=== PATIENT | male | born 1960 | race Asian ===

== ENCOUNTER 2019-12-16 11:36 | Inpatient (IN) | payer MEDICARE, OTHER ==
[~2019-12-16] VITALS: Ht 162.6 cm; Wt 63.7 kg
[2019-12-16] MEDS ORDERED: ISON100I IM (11:47)
[2019-12-16] MEDS ORDERED: FURO80 PO (11:47)
[2019-12-16] MEDS ORDERED: CEFU250T87 PO (11:47)
[2019-12-16] MEDS ORDERED: PYRA500 PO (11:47)
[2019-12-16] MEDS ORDERED: TRAM50TA4 PO (11:47)
[2019-12-16] MEDS ORDERED: VALA500T42 PO (11:47)
[2019-12-16] MEDS ORDERED: PRED20 PO (11:47)
[2019-12-16] MEDS ORDERED: TAMS-13 PO (11:47)
[2019-12-16] MEDS ORDERED: POTA8TAB71 PO (11:47)
[2019-12-16] MEDS ORDERED: SITA25 PO (11:47)
[2019-12-16] MEDS ORDERED: ATOR20TA86 PO (11:47)
[2019-12-16] MEDS ORDERED: RIFAB150 PO (11:47)
[2019-12-16] MEDS ORDERED: SODIUM CHLORIDE 0.9% 100 ML ONE (11:54)
[2019-12-16] MEDS ORDERED: IOVERSOL 350 MG/ML 100 ML VIAL ONE (11:54)
[2019-12-16 12:03] LABS: BASOPHILS % (AUTO) 0.3 % (0.0-2.0); EOSINOPHILS % (AUTO) 0 % (1.0-6.0); HEMATOCRIT 35.5 % (41-53); LYMPHOCYTES # (AUTO) 0.3 K/uL (1.0-4.8); LYMPHOCYTES % (AUTO) 9.5 % (22.0-44.0); MEAN CORPUSCULAR HEMOGLOBIN 33.9 pg (26.0-34.0); MEAN CORPUSCULAR HGB CONC 33.7 G/dL (31.0-37.0); MEAN CORPUSCULAR VOLUME 101 fL (80-100); MONOCYTES # (AUTO) 0.2 K/uL (0.1-1.0); MONOCYTES % (AUTO) 6.6 % (2.0-9.0); NEUTROPHILS % (AUTO) 83.6 % (40.0-70.0); PLATELET COUNT (AUTO) 143 K/uL (150-450); RED BLOOD CELL COUNT(AUTO) 3.53 MIL/uL (4.50-5.90); RED CELL DISTRIBUTION WIDTH 14.4 % (11.5-14.5)
[2019-12-16] MEDS ORDERED: SODIUM CHLORIDE 0.9% 1,000 ML IV ONE (12:15)
[2019-12-16 12:17] LABS: INR 0.9 (0.9-1.1); PROTHROMBIN TIME 9.6 SEC (9.4-11.6)
[2019-12-16 12:22] LABS: ALBUMIN 3.2 g/dL (3.4-5.0); BILIRUBIN,TOTAL 0.6 mg/dL (0.1-1.0); CALCIUM, TOTAL 10.2 mg/dL (8.8-10.5); CREATININE 11.82 mg/dL (0.60-1.30); POTASSIUM 3.1 mmol/L (3.5-5.1)
[2019-12-16] MEDS ORDERED: INSULIN REGULAR, HUMAN 100 UNITS/ML IVP ONE ×2 (12:30→14:45)
[2019-12-16] MEDS ORDERED: SODIUM CHLORIDE 0.9% 250 ML IV ONE (12:40)
[2019-12-16] MEDS: POTASSIUM CHL 10 MEQ/WATER 50 ML IV SCH ×3 (12:46→14:30)
[2019-12-16 12:53] LABS: SOURCE, BLOOD GAS ARTERIAL; TEMPERATURE, FAHRENHEIT, BG 98.6 FAHREN (96.0-98.6)
[2019-12-16 13:02] LABS: ABG A-A DIFF O2 42.2 mmHg (10-20.0); ABG CARBOXYHEMOGLOBIN 0.8 % (0.0-1.5); ABG HCO3 22.5 mmol/L (22.0-26.0); ABG METHEMOGLOBIN 0.4 % (0.0-1.5); ABG OXYGEN CONTENT 13.7 mL/dL (15.0-23.0); ABG OXYHEMOGLOBIN 83.9 % (94.0-100.0); ABG PCO2 47 mmHg (35-45); ABG TOTAL HEMOGLOBIN 11.6 G/dL (12.0-18.0); PO2, ARTERIAL BG 51.8 mmHg (84.0-92.0)
[2019-12-16 13:03] LABS: ABG OXYGEN SATURATION 84.9 % (95.0-98.0); SITE, BLOOD GAS RT RADIAL
[2019-12-16] MEDS ORDERED: LORazepam 2 MG/ML VIAL ONE (14:43)
[2019-12-16] MEDS ORDERED: LORazepam 2 MG/ML VIAL IVP ONE ×3 (14:45→17:30)
[2019-12-16] MEDS ORDERED: POTASSIUM CHL 20 MEQ/0.9% NS 1,000 ML IV ONE (14:45)
[2019-12-16 14:49] LABS: GLUCOSE,POINT OF CARE 521 MG/DL (70-110)
[2019-12-16 15:07] LABS: CALCIUM, TOTAL 9.3 mg/dL (8.8-10.5); CREATININE 11.3 mg/dL (0.60-1.30); POTASSIUM 3.1 mmol/L (3.5-5.1)
[2019-12-16] MEDS ORDERED: SODIUM CHLORIDE 0.9% 500 ML IV ONE (15:12)
[2019-12-16] MEDS ORDERED: LevETIRAcetam 1,000 MG in DEXTROSE 5%-WATER 100 ML IV ONE ×2 (15:30→16:15)
[2019-12-16 16:04] LABS: LACTIC ACID 3.4 mmol/L (0.4-2.0)
[2019-12-16] MEDS ORDERED: PANTOPRAZOLE SODIUM 40 MG/VIAL IVP ONE (16:15)
[2019-12-16 16:44] LABS: GLUCOSE,POINT OF CARE 436 MG/DL (70-110)
[2019-12-16] MEDS ORDERED: LABETALOL HCL 5 MG/ML 20 ML VIAL IVP ONE ×2 (16:45→17:30)
[2019-12-16 17:57] LABS: GLUCOSE,POINT OF CARE 351 MG/DL (70-110)
[2019-12-16 18:49] LABS: GLUCOSE, CSF 214 mg/dL (50-80); TOTAL PROTEIN, CSF 56 mg/dL (15-45)
[2019-12-16 18:50] LABS: MAGNESIUM 2.2 mg/dL (1.80-2.40); PHOSPHORUS 5.1 mg/dL (2.5-4.9)
[2019-12-16] MEDS ORDERED: 0.9% SODIUM CHLORIDE 10 ML SYRINGE IVP PRN (19:00)
[2019-12-16] MEDS ORDERED: ONDANSETRON HCL 4 MG/2 ML VIAL IVP PRN (19:00)
[2019-12-16 19:28] LABS: APPEARANCE2,CSF CLEAR (CLEAR); COLOR2,CSF COLORLESS (COLORLESS); CSF 2ND TUBE NUMBER TUBE NO.4; RED BLOOD CELL2,CSF 0.5 CMM (0-0)
[2019-12-16 19:29] LABS: LYMPHOCYTES2,CSF 80 %; MONOCYTES2,CSF 10 %; NEUTROPHILS2,CSF 10 %
[2019-12-16 19:34] LABS: OTHER CELLS,CSF 2ND 0
[2019-12-16 19:36] LABS: CALCIUM, TOTAL 9.3 mg/dL (8.8-10.5); CREATININE 11.48 mg/dL (0.60-1.30)
[2019-12-16 19:39] LABS: POTASSIUM 2.6 mmol/L (3.5-5.1)
[2019-12-16] MEDS ORDERED: POTASSIUM CHL 10 MEQ/WATER 50 ML IV ONE ×2 (20:00→21:00)
[2019-12-16] MEDS ORDERED: MIDAZOLAM HCL 200 MG in DEXTROSE 5%-WATER 160 ML IV PRN (21:12)
[2019-12-16] MEDS ORDERED: ETOMIDATE 2 MG/ML 10 ML VIAL IVP ONE (21:15)
[2019-12-16] MEDS ORDERED: PHENYTOIN SODIUM 1,000 MG in SODIUM CHLORIDE 0.9% 150 ML IV ONE (21:15)
[2019-12-16] MEDS ORDERED: VECURONIUM BROMIDE 10 MG/VIAL ONE (21:59)
[2019-12-16] MEDS ORDERED: VECURONIUM BROMIDE 10 MG/VIAL IVP ONE (22:15)
[2019-12-16] MEDS: MIDAZOLAM HCL 100 MG in DEXTROSE 5%-WATER 180 ML IV PRN (22:15)
[2019-12-16 23:19] LABS: APPEARANCE,URINE CLEAR (CLEAR); BILIRUBIN,URINE NEGATIVE (NEGATIVE); GLUCOSE, URINE (UA) >=1000 mg/dL (NEGATIVE); KETONES,URINE NEGATIVE (NEGATIVE); LEUKOCYTE ESTERASE ,URINE NEGATIVE (NEGATIVE); NITRATE,URINE NEGATIVE (NEGATIVE); OCCULT BLOOD,URINE MODERATE (NEGATIVE); PH,URINE 6.5 (5.0-8.0); PROTEIN,URINE SEE CONFIRM (NEGATIVE); UROBILINOGEN,URINE 0.2 mg/dL (<=1.0)
[2019-12-16 23:25] LABS: AMPHET/METH SCREEN,URINE NEGATIVE (NEGATIVE); BARBITURATE SCREEN, URINE NEGATIVE (NEGATIVE); BENZODIAZEPINES SCREEN,URINE NEGATIVE (NEGATIVE); CANNABINOID SCREEN,URINE NEGATIVE (NEGATIVE); COCAINE SCREEN,URINE NEGATIVE (NEGATIVE); METHADONE SCREEN, URINE NEGATIVE (NEGATIVE); OPIATE SCREEN,URINE NEGATIVE (NEGATIVE)
[2019-12-16 23:31] LABS: BACTERIA,URINE Few /HPF (None Seen); RBC,URINE 26-50 /HPF (0-2); SQUAMOUS EPITHELIAL CELL,UR None Seen /LPF (None Seen)
[2019-12-16 23:33] LABS: PHENCYCLIDINE SCREEN,URINE NEGATIVE (NEGATIVE)
[2019-12-16 23:33] LABS: ABG A-A DIFF O2 132.2 mmHg (10-20.0); ABG BASE EXCESS -2.4 mmol/L (-2.0-3.0); ABG HCO3 23.1 mmol/L (22.0-26.0); ABG METHEMOGLOBIN 0.2 % (0.0-1.5); ABG OXYGEN CONTENT 16.6 mL/dL (15.0-23.0); ABG OXYGEN SATURATION 99.1 % (95.0-98.0); ABG OXYHEMOGLOBIN 98.9 % (94.0-100.0); ABG PCO2 29 mmHg (35-45); ABG PH 7.481 (7.35-7.450); ABG TOTAL HEMOGLOBIN 10.8 G/dL (12.0-18.0); PO2, ARTERIAL BG 553.5 mmHg (84.0-92.0); SOURCE, BLOOD GAS ARTERIAL; TEMPERATURE, FAHRENHEIT, BG 97.6 FAHREN (96.0-98.6)
[2019-12-16 23:35] LABS: SULFOSALICYLIC ACID,URINE 4+ (Negative)
[2019-12-16 23:35] LABS: O2 DEVICE,BLOOD GAS VENTILATOR (ROOM AIR); SITE, BLOOD GAS RT BRACHIAL; VT, ABG 450 ml
[2019-12-16 23:36] LABS: PEEP,BG 5 cm H2O; SPONTANEOUS VT, BG 425 ml
[2019-12-17 02:33] LABS: ABG A-A DIFF O2 56.4 mmHg (10-20.0); ABG BASE EXCESS -0.2 mmol/L (-2.0-3.0); ABG CARBOXYHEMOGLOBIN 0.3 % (0.0-1.5); ABG HCO3 24.4 mmol/L (22.0-26.0); ABG METHEMOGLOBIN 0.2 % (0.0-1.5); ABG OXYGEN CONTENT 16.1 mL/dL (15.0-23.0); ABG OXYGEN SATURATION 98.8 % (95.0-98.0); ABG OXYHEMOGLOBIN 98.3 % (94.0-100.0); ABG PCO2 39 mmHg (35-45); ABG PH 7.412 (7.35-7.450); PO2, ARTERIAL BG 329.2 mmHg (84.0-92.0); SOURCE, BLOOD GAS ARTERIAL; TEMPERATURE, FAHRENHEIT, BG 97.6 FAHREN (96.0-98.6)
[2019-12-17 02:34] LABS: O2 DEVICE,BLOOD GAS VENTILATOR (ROOM AIR); SITE, BLOOD GAS RT BRACHIAL
[2019-12-17 02:35] LABS: PEEP,BG 5 cm H2O; SPONTANEOUS VT, BG 435 ml; VT, ABG 450 ml
[2019-12-17 08:42] LABS: ABG A-A DIFF O2 30.6 mmHg (10-20.0); ABG BASE EXCESS 0.5 mmol/L (-2.0-3.0); ABG CARBOXYHEMOGLOBIN 0.5 % (0.0-1.5); ABG HCO3 24.7 mmol/L (22.0-26.0); ABG METHEMOGLOBIN 0.3 % (0.0-1.5); ABG OXYGEN CONTENT 17.1 mL/dL (15.0-23.0); ABG OXYGEN SATURATION 98.8 % (95.0-98.0); ABG PCO2 45 mmHg (35-45); ABG PH 7.374 (7.35-7.450); ABG TOTAL HEMOGLOBIN 12.1 G/dL (12.0-18.0); PO2, ARTERIAL BG 203.2 mmHg (84.0-92.0); SOURCE, BLOOD GAS ARTERIAL; TEMPERATURE, FAHRENHEIT, BG 97.8 FAHREN (96.0-98.6)
[2019-12-17 08:43] LABS: O2 DEVICE,BLOOD GAS VENTILATOR (ROOM AIR); PEEP,BG 5 cm H2O; SITE, BLOOD GAS RT RADIAL; SPONTANEOUS VT, BG 420 ml; VT, ABG 450 ml
[2019-12-17 08:56] LABS: BASOPHILS % (AUTO) 0.5 % (0.0-2.0); EOSINOPHILS % (AUTO) 1.7 % (1.0-6.0); HEMATOCRIT 32.3 % (41-53); HEMOGLOBIN 11.2 g/dL (13.5-17.5); LYMPHOCYTES # (AUTO) 0.8 K/uL (1.0-4.8); LYMPHOCYTES % (AUTO) 9.5 % (22.0-44.0); MEAN CORPUSCULAR HEMOGLOBIN 34.5 pg (26.0-34.0); MEAN CORPUSCULAR HGB CONC 34.7 G/dL (31.0-37.0); MEAN CORPUSCULAR VOLUME 100 fL (80-100); MONOCYTES # (AUTO) 0.8 K/uL (0.1-1.0); MONOCYTES % (AUTO) 9.5 % (2.0-9.0); NEUTROPHILS # (AUTO) 6.6 K/uL (1.8-7.7); NEUTROPHILS % (AUTO) 78.8 % (40.0-70.0); PLATELET COUNT (AUTO) 133 K/uL (150-450); RED BLOOD CELL COUNT(AUTO) 3.25 MIL/uL (4.50-5.90); RED CELL DISTRIBUTION WIDTH 14.6 % (11.5-14.5)
[2019-12-17 09:13] LABS: ALBUMIN 2.3 g/dL (3.4-5.0); BILIRUBIN,TOTAL 0.4 mg/dL (0.1-1.0); CALCIUM, TOTAL 9.4 mg/dL (8.8-10.5); CREATININE 12.3 mg/dL (0.60-1.30)
[2019-12-17 09:15] LABS: LACTIC ACID 1.8 mmol/L (0.4-2.0)
[2019-12-17 09:18] LABS: POTASSIUM 2.8 mmol/L (3.5-5.1)
[2019-12-17] MEDS ORDERED: MAGNESIUM HYDROXIDE SUSPENSION 30 ML UDCUP NG PRN (09:45)
[2019-12-17] MEDS ORDERED: HYDROCODONE/ACETAMINOPHEN 5-325 MG TABLET PO PRN (09:45)
[2019-12-17] MEDS ORDERED: BISACODYL 10 MG RECTAL RECTAL SUPPOSITORY PR PRN (09:45)
[2019-12-17] MEDS ORDERED: MORPHINE SULFATE 2 MG/ML SYRINGE IVP PRN (09:45)
[2019-12-17] MEDS ORDERED: ALBUTEROL SULFATE 2.5 MG/0.5 ML NEB SOLUTION NEB PRN (09:45)
[2019-12-17] MEDS ORDERED: ONDANSETRON HCL 4 MG/2 ML VIAL IVP PRN (09:45)
[2019-12-17] MEDS ORDERED: ACETAMINOPHEN 325 MG TABLET NG PRN (09:45)
[2019-12-17] MEDS ORDERED: IPRATROPIUM BROMIDE 0.5 MG/2.5 ML NEB SOLUTION NEB PRN (09:45)
[2019-12-17] MEDS ORDERED: DEXTROSE 50%-WATER 25 GM/50 ML SYRINGE IVP PRN (09:45)
[2019-12-17] MEDS ORDERED: ISONIAZID 300 MG TABLET PO SCH (10:00)
[2019-12-17] MEDS ORDERED: PYRAZINAMIDE 500 MG TABLET NG SCH (10:00)
[2019-12-17] MEDS ORDERED: LevETIRAcetam 1,000 MG in DEXTROSE 5%-WATER 100 ML IV SCH (10:00)
[2019-12-17] MEDS: POTASSIUM CHL 10 MEQ/WATER 50 ML IV SCH ×4 (10:43→14:04)
[2019-12-17] MEDS: RIFABUTIN 150 MG CAPSULE NG SCH (10:43)
[2019-12-17] MEDS: CefTRIAXone 1 GM/DEXTROSE 50 ML IV SCH (11:03)
[2019-12-17] MEDS ORDERED: ISON300 PO (11:05)
[2019-12-17] MEDS: AZITHROMYCIN 500 MG/NS 250 ML IV SCH (12:02)
[2019-12-17] MEDS: HEPARIN SODIUM,PORCINE 5,000 UNITS/ML VIAL SQ SCH ×2 (15:32→23:11)
[2019-12-17 17:02] LABS: CALCIUM, TOTAL 9.2 mg/dL (8.8-10.5); CREATININE 11.61 mg/dL (0.60-1.30); MAGNESIUM 2.1 mg/dL (1.80-2.40); PHOSPHORUS 7.1 mg/dL (2.5-4.9); POTASSIUM 3.6 mmol/L (3.5-5.1)
[2019-12-17] MEDS: INSULIN REGULAR, HUMAN 100 UNITS/ML SQ PRN (18:09)
[2019-12-17 18:45] LABS: GLUCOSE,POINT OF CARE 193 MG/DL (70-110)
[2019-12-17 20:35] LABS: SPECIMENTYPE,BODY FLUID PERITONEAL
[2019-12-17] MEDS: FUROSEMIDE 40 MG/5 ML SOLUTION UDCUP NG SCH (21:27)
[2019-12-17] MEDS: ATORVASTATIN CALCIUM 20 MG TABLET NG SCH (21:42)
[2019-12-17 22:20] LABS: APPEARANCE,SPUN,BODY FLUID CLEAR (CLEAR); APPEARANCE,UNSPUN,BODY FLUID CLEAR (CLEAR)
[2019-12-17 22:21] LABS: BASOPHILS,BODY FLUID 0 %; COLOR,BODY FLUID COLORLESS (LT YELLOW); EOSINOPHILS,BF (ANAL) 0 %; LYMPHOCYTES,BODY FLUID 40 %; MONOCYTES,BODY FLUID 10 %; TOTAL VOLUME,BODY FLUID 10 mL; WBC, BODY FLUID 2 /cu. mm.
[2019-12-17] MEDS: DOCUSATE SODIUM 100 MG CAPSULE PO SCH (22:21)
[2019-12-17 22:22] LABS: NEUTROPHILS,BODY FLUID 50 %
[2019-12-17 22:23] LABS: BODY FLUID RBC 0.5 /cu. mm.
[2019-12-18] VITALS (9 sets, daily range): BP systolic 81–169; BP diastolic 42–81
[2019-12-18] MEDS: INSULIN REGULAR, HUMAN 100 UNITS/ML SQ PRN (00:19)
[2019-12-18] MEDS: MIDAZOLAM HCL 100 MG in DEXTROSE 5%-WATER 180 ML IV PRN (07:00)
[2019-12-18 07:32] LABS: GLUCOSE,POINT OF CARE 151 MG/DL (70-110)
[2019-12-18] MEDS: DOCUSATE SODIUM 100 MG CAPSULE PO SCH ×2 (08:01→21:53)
[2019-12-18 08:17] LABS: GLUCOSE,POINT OF CARE 78 MG/DL (70-110)
[2019-12-18 08:37] LABS: BASOPHILS % (AUTO) 0.2 % (0.0-2.0); EOSINOPHILS % (AUTO) 0.1 % (1.0-6.0); HEMATOCRIT 37.8 % (41-53); HEMOGLOBIN 12.8 g/dL (13.5-17.5); LYMPHOCYTES # (AUTO) 0.9 K/uL (1.0-4.8); MEAN CORPUSCULAR HEMOGLOBIN 33.9 pg (26.0-34.0); MEAN CORPUSCULAR HGB CONC 33.8 G/dL (31.0-37.0); MEAN CORPUSCULAR VOLUME 100 fL (80-100); MONOCYTES # (AUTO) 0.8 K/uL (0.1-1.0); MONOCYTES % (AUTO) 7.7 % (2.0-9.0); NEUTROPHILS # (AUTO) 8.4 K/uL (1.8-7.7); PLATELET COUNT (AUTO) 134 K/uL (150-450); RED BLOOD CELL COUNT(AUTO) 3.77 MIL/uL (4.50-5.90); RED CELL DISTRIBUTION WIDTH 14.9 % (11.5-14.5)
[2019-12-18 08:48] LABS: CALCIUM, TOTAL 9.3 mg/dL (8.8-10.5); CREATININE 12.11 mg/dL (0.60-1.30); POTASSIUM 3.4 mmol/L (3.5-5.1)
[2019-12-18 08:49] LABS: INR 0.9 (0.9-1.1); PROTHROMBIN TIME 9.7 SEC (9.4-11.6)
[2019-12-18 08:57] LABS: LACTIC ACID 1.6 mmol/L (0.4-2.0)
[2019-12-18] MEDS ORDERED: ISONIAZID 300 MG TABLET NG SCH (09:00)
[2019-12-18 09:06] LABS: ALBUMIN 2.2 g/dL (3.4-5.0); TOTAL PROTEIN, SERUM 7.2 g/dL (6.4-8.2)
[2019-12-18 09:22] LABS: BILIRUBIN,TOTAL 0.4 mg/dL (0.1-1.0)
[2019-12-18] MEDS: RIFABUTIN 150 MG CAPSULE NG SCH (09:27)
[2019-12-18] MEDS: HEPARIN SODIUM,PORCINE 5,000 UNITS/ML VIAL SQ SCH ×3 (09:28→23:28)
[2019-12-18 10:27] LABS: GLUCOSE,POINT OF CARE 84 MG/DL (70-110)
[2019-12-18] MEDS: CefTRIAXone 1 GM/DEXTROSE 50 ML IV SCH (10:48)
[2019-12-18] MEDS: AZITHROMYCIN 500 MG/NS 250 ML IV SCH (11:20)
[2019-12-18] MEDS ORDERED: ISONIAZID 300 MG TABLET NG ONE (11:30)
[2019-12-18] MEDS ORDERED: RIFABUTIN 150 MG CAPSULE NG ONE (11:30)
[2019-12-18 11:55] LABS: ABG A-A DIFF O2 132.6 mmHg (10-20.0); ABG BASE EXCESS -1.6 mmol/L (-2.0-3.0); ABG CARBOXYHEMOGLOBIN 0.5 % (0.0-1.5); ABG HCO3 23.3 mmol/L (22.0-26.0); ABG METHEMOGLOBIN 0.3 % (0.0-1.5); ABG OXYGEN CONTENT 13.7 mL/dL (15.0-23.0); ABG OXYGEN SATURATION 94.2 % (95.0-98.0); ABG OXYHEMOGLOBIN 93.4 % (94.0-100.0); ABG PCO2 37 mmHg (35-45); ABG PH 7.416 (7.35-7.450); ABG TOTAL HEMOGLOBIN 10.4 G/dL (12.0-18.0); PO2, ARTERIAL BG 74.5 mmHg (84.0-92.0); SOURCE, BLOOD GAS ARTERIAL; TEMPERATURE, FAHRENHEIT, BG 98.6 FAHREN (96.0-98.6)
[2019-12-18 11:56] LABS: SITE, BLOOD GAS RT RADIAL
[2019-12-18 11:57] LABS: O2 DEVICE,BLOOD GAS VENTILATOR (ROOM AIR); PEEP,BG 5 cm H2O; VT, ABG 450 ml
[2019-12-18 13:30] LABS: GLUCOSE,POINT OF CARE 100 MG/DL (70-110)
[2019-12-18] MEDS: LevETIRAcetam 1,000 MG in DEXTROSE 5%-WATER 100 ML IV SCH (13:42)
[2019-12-18] MEDS: POTASSIUM CHL 10 MEQ/WATER 50 ML IV SCH ×4 (15:22→19:05)
[2019-12-18 16:43] LABS: GLUCOSE,POINT OF CARE 129 MG/DL (70-110)
[2019-12-18] MEDS: PROPOFOL 1000 MG/ISO-OSM 100 ML IV PRN (19:00)
[2019-12-18 19:39] LABS: GLUCOSE,POINT OF CARE 211 MG/DL (70-110)
[2019-12-18] MEDS: ATORVASTATIN CALCIUM 20 MG TABLET NG SCH (21:54)
[2019-12-18] MEDS: FUROSEMIDE 40 MG/5 ML SOLUTION UDCUP NG SCH (23:25)
[2019-12-19] VITALS (20 sets, daily range): BP systolic 72–165; BP diastolic 37–85
[2019-12-19 06:44] LABS: GLUCOSE,POINT OF CARE 320 MG/DL (70-110)
[2019-12-19 06:46] LABS: CALCIUM, TOTAL 9.1 mg/dL (8.8-10.5); CREATININE 11.67 mg/dL (0.60-1.30); PHOSPHORUS 7.5 mg/dL (2.5-4.9); POTASSIUM 3.2 mmol/L (3.5-5.1)
[2019-12-19] MEDS ORDERED: POTASSIUM CHLORIDE 10% 40 MEQ/30 ML LIQUID UDCUP NG ONE (09:00)
[2019-12-19] MEDS: ISONIAZID 300 MG TABLET NG SCH (09:35)
[2019-12-19] MEDS: HEPARIN SODIUM,PORCINE 5,000 UNITS/ML VIAL SQ SCH ×2 (09:35→16:00)
[2019-12-19] MEDS: DOCUSATE SODIUM 100 MG CAPSULE PO SCH ×2 (09:36→19:41)
[2019-12-19] MEDS: RIFABUTIN 150 MG CAPSULE NG SCH (09:36)
[2019-12-19] MEDS: CefTRIAXone 1 GM/DEXTROSE 50 ML IV SCH (09:40)
[2019-12-19] MEDS ORDERED: RINGERS SOLUTION,LACTATED 1,000 ML IV ONE ×2 (09:49→11:30)
[2019-12-19 10:27] LABS: BASOPHILS % (AUTO) 0.6 % (0.0-2.0); EOSINOPHILS % (AUTO) 1.1 % (1.0-6.0); HEMATOCRIT 31.7 % (41-53); HEMOGLOBIN 10.6 g/dL (13.5-17.5); LYMPHOCYTES # (AUTO) 0.9 K/uL (1.0-4.8); MEAN CORPUSCULAR HGB CONC 33.4 G/dL (31.0-37.0); MEAN CORPUSCULAR VOLUME 102 fL (80-100); MONOCYTES # (AUTO) 0.7 K/uL (0.1-1.0); MONOCYTES % (AUTO) 8.8 % (2.0-9.0); NEUTROPHILS # (AUTO) 6.3 K/uL (1.8-7.7); NEUTROPHILS % (AUTO) 78.5 % (40.0-70.0); PLATELET COUNT (AUTO) 123 K/uL (150-450); RED BLOOD CELL COUNT(AUTO) 3.12 MIL/uL (4.50-5.90); RED CELL DISTRIBUTION WIDTH 15.3 % (11.5-14.5)
[2019-12-19] MEDS ORDERED: NOREPINEPHRINE 4 MG/D5%-WATER 250 ML IV ONE (10:56)
[2019-12-19] MEDS: AZITHROMYCIN 500 MG/NS 250 ML IV SCH (11:21)
[2019-12-19] MEDS ORDERED: ALBUMIN HUMAN 25%-25GM/100ML 100 ML IV PRN (11:30)
[2019-12-19] MEDS ORDERED: DEXMEDETOMIDINE HCL 200 MCG in SODIUM CHLORIDE 0.9% 48 ML IV PRN (11:30)
[2019-12-19] MEDS ORDERED: NOREPINEPHRINE 4 MG/D5%-WATER 250 ML IV PRN (11:30)
[2019-12-19 11:35] LABS: ABG A-A DIFF O2 36.8 mmHg (10-20.0); ABG BASE EXCESS 1.1 mmol/L (-2.0-3.0); ABG CARBOXYHEMOGLOBIN 0.7 % (0.0-1.5); ABG HCO3 25.4 mmol/L (22.0-26.0); ABG METHEMOGLOBIN 0.3 % (0.0-1.5); ABG OXYGEN CONTENT 14.2 mL/dL (15.0-23.0); ABG OXYGEN SATURATION 98.6 % (95.0-98.0); ABG OXYHEMOGLOBIN 97.6 % (94.0-100.0); ABG PCO2 40 mmHg (35-45); ABG PH 7.421 (7.35-7.450); ABG TOTAL HEMOGLOBIN 10.1 G/dL (12.0-18.0); SOURCE, BLOOD GAS ARTERIAL; TEMPERATURE, FAHRENHEIT, BG 98.6 FAHREN (96.0-98.6)
[2019-12-19 11:36] LABS: O2 DEVICE,BLOOD GAS VENTILATOR (ROOM AIR); SITE, BLOOD GAS RT RADIAL; VT, ABG 450 ml
[2019-12-19 11:38] LABS: PEEP,BG 5 cm H2O
[2019-12-19] MEDS: LevETIRAcetam 1,000 MG in DEXTROSE 5%-WATER 100 ML IV SCH (13:20)
[2019-12-19 13:46] LABS: GLUCOSE,POINT OF CARE 273 MG/DL (70-110)
[2019-12-19] MEDS: INSULIN REGULAR, HUMAN 100 UNITS/ML SQ PRN (17:57)
[2019-12-19] MEDS: POTASSIUM CHL 10 MEQ/WATER 50 ML IV SCH ×3 (20:00→22:16)
[2019-12-19] MEDS ORDERED: SODIUM CHLORIDE 0.9% 100 ML ONE (21:31)
[2019-12-19 21:37] LABS: HEMATOCRIT 33.9 % (41-53); HEMOGLOBIN 11.1 g/dL (13.5-17.5)
[2019-12-19] MEDS: ATORVASTATIN CALCIUM 20 MG TABLET NG SCH (22:00)
[2019-12-19] MEDS: FUROSEMIDE 40 MG/5 ML SOLUTION UDCUP NG SCH (22:00)
[2019-12-19] MEDS: PANTOPRAZOLE SODIUM 40 MG/VIAL IVP SCH (22:15)
[2019-12-20] VITALS (26 sets, daily range): BP systolic 94–190; BP diastolic 5–91
[2019-12-20] MEDS: PROPOFOL 1000 MG/ISO-OSM 100 ML IV PRN (02:01)
[2019-12-20 05:58] LABS: BASOPHILS % (AUTO) 0.6 % (0.0-2.0); EOSINOPHILS % (AUTO) 1.4 % (1.0-6.0); HEMOGLOBIN 11.2 g/dL (13.5-17.5); LYMPHOCYTES # (AUTO) 0.8 K/uL (1.0-4.8); LYMPHOCYTES % (AUTO) 8.8 % (22.0-44.0); MEAN CORPUSCULAR HEMOGLOBIN 34.4 pg (26.0-34.0); MEAN CORPUSCULAR VOLUME 101 fL (80-100); MONOCYTES # (AUTO) 0.5 K/uL (0.1-1.0); MONOCYTES % (AUTO) 5.9 % (2.0-9.0); NEUTROPHILS # (AUTO) 7.3 K/uL (1.8-7.7); NEUTROPHILS % (AUTO) 83.3 % (40.0-70.0); PLATELET COUNT (AUTO) 152 K/uL (150-450); RED BLOOD CELL COUNT(AUTO) 3.26 MIL/uL (4.50-5.90); RED CELL DISTRIBUTION WIDTH 14.9 % (11.5-14.5)
[2019-12-20 06:33] LABS: BILIRUBIN,TOTAL 0.4 mg/dL (0.1-1.0); CALCIUM, TOTAL 9.1 mg/dL (8.8-10.5); CREATININE 11.29 mg/dL (0.60-1.30); POTASSIUM 4.1 mmol/L (3.5-5.1)
[2019-12-20 06:43] LABS: GLUCOSE,POINT OF CARE 209 MG/DL (70-110)
[2019-12-20] MEDS: PANTOPRAZOLE SODIUM 40 MG/VIAL IVP SCH ×2 (08:55→21:39)
[2019-12-20] MEDS: RIFABUTIN 150 MG CAPSULE NG SCH (08:59)
[2019-12-20] MEDS: ISONIAZID 300 MG TABLET NG SCH (08:59)
[2019-12-20] MEDS: DOCUSATE SODIUM 100 MG CAPSULE PO SCH ×2 (09:11→21:47)
[2019-12-20] MEDS: CefTRIAXone 1 GM/DEXTROSE 50 ML IV SCH (09:35)
[2019-12-20] MEDS: AZITHROMYCIN 500 MG/NS 250 ML IV SCH (11:41)
[2019-12-20 13:15] LABS: GLUCOSE,POINT OF CARE 194 MG/DL (70-110)
[2019-12-20] MEDS: LevETIRAcetam 1,000 MG in DEXTROSE 5%-WATER 100 ML IV SCH (13:17)
[2019-12-20] MEDS ORDERED: ValACYclovir HCL 500 MG TABLET PO SCH (15:00)
[2019-12-20] MEDS ORDERED: PHENYTOIN SODIUM 1,000 MG in SODIUM CHLORIDE 0.9% 150 ML IV ONE (17:00)
[2019-12-20] MEDS ORDERED: HydrALAZINE HCL 20 MG/ML VIAL IVP PRN (17:15)
[2019-12-20] MEDS: INSULIN REGULAR, HUMAN 100 UNITS/ML SQ PRN ×2 (18:35→22:51)
[2019-12-20 18:43] LABS: GLUCOSE,POINT OF CARE 265 MG/DL (70-110)
[2019-12-20] MEDS: ATORVASTATIN CALCIUM 20 MG TABLET NG SCH (21:39)
[2019-12-20] MEDS: FUROSEMIDE 40 MG/5 ML SOLUTION UDCUP NG SCH (21:39)
[2019-12-21] VITALS (21 sets, daily range): BP systolic 107–177; BP diastolic 56–88
[2019-12-21] MEDS: PHENYTOIN SODIUM 100 MG in SODIUM CHLORIDE 0.9% 100 ML IV SCH ×2 (01:00→09:57)
[2019-12-21 06:42] LABS: BASOPHILS % (AUTO) 0.3 % (0.0-2.0); EOSINOPHILS % (AUTO) 1.7 % (1.0-6.0); HEMATOCRIT 32.9 % (41-53); HEMOGLOBIN 11.5 g/dL (13.5-17.5); LYMPHOCYTES # (AUTO) 1.2 K/uL (1.0-4.8); LYMPHOCYTES % (AUTO) 12.9 % (22.0-44.0); MEAN CORPUSCULAR HEMOGLOBIN 35.4 pg (26.0-34.0); MEAN CORPUSCULAR HGB CONC 34.8 G/dL (31.0-37.0); MEAN CORPUSCULAR VOLUME 102 fL (80-100); MONOCYTES % (AUTO) 10.6 % (2.0-9.0); NEUTROPHILS # (AUTO) 7.1 K/uL (1.8-7.7); NEUTROPHILS % (AUTO) 74.5 % (40.0-70.0); PLATELET COUNT (AUTO) 158 K/uL (150-450); RED BLOOD CELL COUNT(AUTO) 3.24 MIL/uL (4.50-5.90); RED CELL DISTRIBUTION WIDTH 14.7 % (11.5-14.5)
[2019-12-21 07:08] LABS: ALBUMIN 2.1 g/dL (3.4-5.0); BILIRUBIN,TOTAL 0.4 mg/dL (0.1-1.0); CALCIUM, TOTAL 9.3 mg/dL (8.8-10.5); CREATININE 10.82 mg/dL (0.60-1.30); POTASSIUM 3.9 mmol/L (3.5-5.1); TOTAL PROTEIN, SERUM 7.3 g/dL (6.4-8.2)
[2019-12-21 07:28] LABS: GLUCOSE,POINT OF CARE 137 MG/DL (70-110)
[2019-12-21] MEDS: DOCUSATE SODIUM 100 MG CAPSULE PO SCH (09:00)
[2019-12-21] MEDS: ISONIAZID 300 MG TABLET NG SCH ×2 (09:00→09:55)
[2019-12-21] MEDS: RIFABUTIN 150 MG CAPSULE NG SCH ×2 (09:00→09:55)
[2019-12-21] MEDS: PANTOPRAZOLE SODIUM 40 MG/VIAL IVP SCH (09:55)
[2019-12-21] MEDS: CefTRIAXone 1 GM/DEXTROSE 50 ML IV SCH (10:46)
[2019-12-21] MEDS: AZITHROMYCIN 500 MG/NS 250 ML IV SCH (10:46)
[2019-12-21] MEDS: INSULIN REGULAR, HUMAN 100 UNITS/ML SQ PRN (11:48)
[2019-12-21 11:49] LABS: GLUCOSE,POINT OF CARE 156 MG/DL (70-110)
[2019-12-21] MEDS: LevETIRAcetam 1,000 MG in DEXTROSE 5%-WATER 100 ML IV SCH (13:19)
[2019-12-21 17:36] LABS: ABG A-A DIFF O2 138.9 mmHg (10-20.0); ABG CARBOXYHEMOGLOBIN 0.8 % (0.0-1.5); ABG HCO3 23.5 mmol/L (22.0-26.0); ABG METHEMOGLOBIN 0.1 % (0.0-1.5); ABG OXYGEN CONTENT 13.8 mL/dL (15.0-23.0); ABG OXYGEN SATURATION 90.6 % (95.0-98.0); ABG OXYHEMOGLOBIN 89.8 % (94.0-100.0); ABG PCO2 43 mmHg (35-45); ABG PH 7.374 (7.35-7.450); ABG TOTAL HEMOGLOBIN 10.9 G/dL (12.0-18.0); PO2, ARTERIAL BG 61.2 mmHg (84.0-92.0); SOURCE, BLOOD GAS ARTERIAL; TEMPERATURE, FAHRENHEIT, BG 98.6 FAHREN (96.0-98.6)
[2019-12-21 17:48] LABS: O2 DEVICE,BLOOD GAS VENTILATOR (ROOM AIR); SITE, BLOOD GAS RT RADIAL
[2019-12-21 17:49] LABS: PEEP,BG 5 cm H2O; VT, ABG 450 ml
[2019-12-21 18:11] LABS: GLUCOSE,POINT OF CARE 83 MG/DL (70-110)
== END 2019-12-21 18:57 | disposition short-term general hospital (02) | DRG 870 ==
LOC: EMS 12:01 → ICUN 12-17 09:33 → UNDOADMIN 12-18 09:33 → ICUN 12-18 14:55
PROVIDERS: ADMIT Hospitalist; ATTEND Hospitalist
PROC: 5A1955Z Respiratory Ventilation, Greater than 96 Consecutive Hours (ICD-10-PCS; principal; 2019-12-17)
PROC: 0BH17EZ Insertion of Endotracheal Airway into Trachea, Via Natural or Artificial Opening (ICD-10-PCS; 2019-12-17)
PROC: 3E1M39Z Irrigation of Peritoneal Cavity using Dialysate, Percutaneous Approach (ICD-10-PCS; 2019-12-17)
PROC: 3E1M39Z Irrigation of Peritoneal Cavity using Dialysate, Percutaneous Approach (ICD-10-PCS; 2019-12-18)
PROC: 3E1M39Z Irrigation of Peritoneal Cavity using Dialysate, Percutaneous Approach (ICD-10-PCS; 2019-12-19)
PROC: 3E1M39Z Irrigation of Peritoneal Cavity using Dialysate, Percutaneous Approach (ICD-10-PCS; 2019-12-20)
PROC: 3E1M39Z Irrigation of Peritoneal Cavity using Dialysate, Percutaneous Approach (ICD-10-PCS; 2019-12-21)
DX: A41.9 Sepsis, unspecified organism (principal); J96.00 Acute respiratory failure, unspecified whether with hypoxia or hypercapnia; E43 Unspecified severe protein-calorie malnutrition; N18.6 End stage renal disease; E11.10 Type 2 diabetes mellitus with ketoacidosis without coma; G92 Toxic encephalopathy; A15.0 Tuberculosis of lung; E87.1 Hypo-osmolality and hyponatremia; I12.0 Hypertensive chronic kidney disease with stage 5 chronic kidney disease or end stage renal disease; E87.6 Hypokalemia; D64.9 Anemia, unspecified; B02.9 Zoster without complications; E11.22 Type 2 diabetes mellitus with diabetic chronic kidney disease; E11.319 Type 2 diabetes mellitus with unspecified diabetic retinopathy without macular edema; E11.40 Type 2 diabetes mellitus with diabetic neuropathy, unspecified; E83.39 Other disorders of phosphorus metabolism; E87.70 Fluid overload, unspecified; G40.901 Epilepsy, unspecified, not intractable, with status epilepticus; Z20.828 Contact with and (suspected) exposure to other viral communicable diseases; Z82.49 Family history of ischemic heart disease and other diseases of the circulatory system; Z83.3 Family history of diabetes mellitus; Z86.15 Personal history of latent tuberculosis infection; Z86.19 Personal history of other infectious and parasitic diseases; Z99.2 Dependence on renal dialysis; Z79.899 Other long term (current) drug therapy; Z68.24 Body mass index [BMI] 24.0-24.9, adult
CPT/HCPCS: 36600; 70450; 70496; 70551; 82271; 82805; 82945; 82948; 83605; 83735; 84100; 84132; 84157; 85014; 85018; 86850; 86900; 86901; 87040; 87070; 87205; 87529; 87798; 89051; 93005; 94002; 94003; 95816; 99291; 99292; C9113; G0378; G0480; J0360; J0456; J0696; J0712; J1165; J1644; J1815; J2060; J2250; J2704; J3480; J3490; J7030; J7040; J7050; J7060; J7120